=== PATIENT | female | born 1965 | race Caucasian/White ===

== ENCOUNTER 2019-04-27 13:53 | Emergency (ER) | payer BC ==
[~2019-04-27] VITALS: Ht 170.2 cm; Wt 74.8 kg
[2019-04-27] MEDS ORDERED: HYDROCODONE/APAP 5-325MG TABLET PO ONE (15:00)
[2019-04-27] MEDS ORDERED: HYDROCODONE/APAP 5-325MG TABLET ONE ×2 (15:08)
--- NOTE | 2019-04-27 15:22 | NUR ---
Patient discharged to home in stable conditon. Written and verbal after care instructions given. Patient verbalizes understanding of instructions.
== END 2019-04-27 15:23 | disposition home or self-care (01) ==
LOC: ER 13:53
DX: S92.422A Displaced fracture of distal phalanx of left great toe, initial encounter for closed fracture (principal); S92.522A Displaced fracture of middle phalanx of left lesser toe(s), initial encounter for closed fracture; W20.8XXA Other cause of strike by thrown, projected or falling object, initial encounter; Y93.89 Activity, other specified; Y92.89 Other specified places as the place of occurrence of the external cause; Y99.8 Other external cause status
CPT/HCPCS: 73630; A4217; A4663